=== PATIENT | male | born 2005 | race Caucasian/White ===

== ENCOUNTER 2025-01-09 00:45 | Emergency (ER) | payer OTHER ==
[~2025-01-09] VITALS: Ht 177.8 cm; Wt 87.7 kg
[~2025-01-09 00:45] MED LIST: CETI10CA2 PO; PEPC1TAB5 PO; PRED10TA2 PO
[2025-01-09 06:46] LABS: BASO # 0.0 10^3/uL (0.0-0.2); BASO % 0.5 % (0.0-1.0); EOS # 0.4 10^3/uL (0.0-0.5); EOS % 4.8 % (0.0-3.0); LYMPH # 1.8 10^3/uL (1.5-5.0); LYMPH % 22.7 % (24.0-44.0); MONO # 0.6 10^3/uL (0.0-0.8); MONO % 7.9 % (2.0-8.0); NEUTROPHILS # 4.9 10^3/uL (1.5-8.5); NEUTROPHILS % 63.7 % (36.0-66.0); PLATELET COUNT, AUTOMATED 255 10^3/uL (150-450)
[2025-01-09 06:57] LABS: ERYTHROCYTE SEDIMENTATION RATE 15 mm/hr (0-15)
[2025-01-09 07:12] LABS: ALT/SGPT 26 U/L (7.0-40); AST/SGOT 18 U/L (<34); CALCIUM LEVEL 9.7 MG/DL (8.5-10.1); CARBON DIOXIDE LEVEL 28 MMOL/L (20-31); CHLORIDE LEVEL 101 MMOL/L (98-107); CK-MB VALUE MASS < 1.0 NG/ML (<3.6); CREATININE FOR GFR 0.88 MG/DL (0.70-1.30); GLOMERULAR FILTRATION RATE > 90.0 (>60); POTASSIUM SERUM 4.4 MMOL/L (3.5-5.1); SODIUM LEVEL 140 MMOL/L (136-145)
[2025-01-09 07:21] LABS: CPK CREATINE PHOSPHOKINASE 86 U/L (46-171)
[2025-01-09 07:45] VITALS: BP 132/60; TEMP 98.6; O2SAT 100
== END 2025-01-09 07:45 | disposition home or self-care (01) ==
LOC: M ED 00:45
DX: R07.9 Chest pain, unspecified (principal); B34.1 Enterovirus infection, unspecified; R05.9 Cough, unspecified; Z79.899 Other long term (current) drug therapy; Z79.52 Long term (current) use of systemic steroids

== ENCOUNTER 2025-02-01 08:51 | Emergency (ER) | payer OTHER ==
[~2025-02-01] VITALS: Ht 177.8 cm; Wt 95.7 kg
[2025-02-01] MEDS ORDERED: ZITHTAB PO (11:30)
[2025-02-01] MEDS ORDERED: ALBU8.5H INH (11:30)
[2025-02-01 11:40] VITALS: BP 143/65; TEMP 97.6; O2SAT 97
== END 2025-02-01 11:41 | disposition home or self-care (01) ==
LOC: M ED 08:51
DX: J06.9 Acute upper respiratory infection, unspecified (principal); Z79.2 Long term (current) use of antibiotics; Z79.51 Long term (current) use of inhaled steroids